=== PATIENT | female | born 1970 | race Caucasian/White ===

== ENCOUNTER 2022-08-24 10:22 | Outpatient (CLI) | payer OTHER | END 2022-08-24 10:23 | disposition home or self-care (01) | LOC: TBSIIMAG 10:22 | PROVIDERS: ATTEND Orthopaedic Surgery | DX: M23.92 Unspecified internal derangement of left knee (principal); M67.864 Other specified disorders of tendon, left knee ==

== ENCOUNTER 2022-10-04 09:18 | Outpatient (CLI) | payer OTHER ==
[2022-10-04 10:52] LABS: #Basophils 0.1 10x3/uL (0.0-0.2); #Eosinphils 0.1 10x3/uL (0.0-0.5); #Monocytes 0.5 10x3/uL (0.0-1.1); #Neutrophils 3.1 10x3/uL (1.5-8.4); %Basophils 0.9 % (0.0-2.0); %Eosinophils 2.5 % (0.0-6.0); %Lymphocytes 33.4 % (18.0-47.0); %Monocytes 9.1 % (0.0-10.0); %Neutrophils 53.9 % (40.0-75.0); Hemoglobin 13.5 g/dL (12.0-15.5); Mean Corpuscular HGB CONC 32.6 g/dL (32.0-36.0); Mean Corpuscular Hemoglobin 29.5 pg (27.0-33.0); Mean Corpuscular Volume 90.6 fl (81.6-98.3); Mean Platelet Volume 12.5 fl (7.4-10.4); Platelet Count 341 10x3/uL (150-450); Red Blood Cell (RBC) Count 4.57 10x6/uL (3.90-5.03); White Blood Cell (WBC) Count 5.7 10x3/uL (3.5-10.5)
[2022-10-04 11:34] LABS: BHCG - Serum Negative (NEGATIVE); Pregs Control Background? CLEAR/WHITE (CLR/WHITE); Pregs Control Bar Appear? YES (CONTROL BAR)
== END 2022-10-04 09:19 | disposition home or self-care (01) ==
LOC: LABBT 09:18
PROVIDERS: ATTEND Orthopaedic Surgery
DX: Z01.818 Encounter for other preprocedural examination (principal); M22.2X2 Patellofemoral disorders, left knee
CPT/HCPCS: 71046; 84703; 85025; 93005; 93010

== ENCOUNTER 2024-10-15 16:01 | Emergency (ER) | payer OTHER ==
[2024-10-15 16:51] LABS: #Basophils 0.04 10x3/uL (0.0-0.2); #Eosinophils 0.15 10x3/uL (0.0-0.7); #Monocytes 0.63 10x3/uL (0.11-0.59); #Neutrophils 6.61 10x3/uL (1.40-6.50); %Basophils 0.4 % (0.0-1.0); %Eosinophils 1.5 % (0.0-10.0); %Lymphocytes 22.9 % (21.0-51.0); %Monocytes 6.5 % (0.0-10.0); %Neutrophils 68.4 % (42.0-75.0); Hematocrit 23.6 % (36.0-47.0); Hemoglobin 7.8 g/dL (12.0-16.0); Mean Corpuscular Hemoglobin 30.6 pg (27.0-31.0); Mean Corpuscular Volume 92.5 fL (78.0-98.0); Platelet Count 374 10x3/uL (130-400); Red Blood Cell (RBC) Count 2.55 mill/uL (4.20-5.40); White Blood Cell (WBC) Count 9.68 10x3/uL (4.8-10.8)
[2024-10-15 16:58] LABS: BHCG - Serum Negative (NEGATIVE); Pregs Control Background? CLEAR/WHITE (CLR/WHITE); Pregs Control Bar Appear? YES (CONTROL BAR)
[2024-10-15 17:10] LABS: ALT (SGPT) 38 U/L (Less than 34); AST (SGOT) 33 U/L (11-34); Albumin 3.5 g/dL (3.1-4.5); Alkaline Phosphatase 52 U/L (40-110); Anion Gap 11 mmol/L (10-20); BUN (Urea Nitrogen) 12 mg/dL (9.8-20.1); Bilirubin, Total 0.2 mg/dL (0.3-1.2); Calc. Creatinine Clearance 0 mL/min (70-130); Calcium 8.3 mg/dL (7.8-10.44); Carbon Dioxide 22 mmol/L (22-29); Chloride 110 mmol/L (98-107); Globulin 2.5 g/dL (2.4-3.5); Glucose 103 mg/dL (70-105); Potassium 3.8 mmol/L (3.5-5.1); Sodium 139 mmol/L (136-145)
== END 2024-10-15 22:46 | disposition home or self-care (01) ==
LOC: ERS 16:01
DX: R06.02 Shortness of breath (principal); D64.9 Anemia, unspecified
CPT/HCPCS: 36415; 36430; 71045; 80053; 84703; 85025; 86850; 86900; 86901; 93005; P9016